=== PATIENT | female | born 1980 | race Caucasian/White ===

== ENCOUNTER 2018-09-23 12:31 | Emergency (ER) | payer MEDICAID, OTHER ==
[~2018-09-23] VITALS: Ht 160 cm; Wt 83.9 kg
[2018-09-23 13:47] LABS: Basophils # (auto) 0 uL; Basophils % (auto) 0.4 % (0.0-2.0); Eosinophils # (auto) 0.1 uL; Eosinophils % (auto) 1.4 % (0.0-7.0); Hematocrit 42.3 % (36.0-46.0); Hemoglobin 14.4 g/dL (12.2-16.2); Lymphocytes # (auto) 2.3 uL; Lymphocytes % (auto) 21.1 % (10.0-50.0); Mean Corpuscular Volume 88.2 fL (80.0-100.0); Monocytes # (auto) 0.7 uL; Monocytes % (auto) 6.7 % (0.0-12.0); Neutrophils # (auto) 7.6 uL; Neutrophils % (auto) 70.4 % (37.0-80.0); Platelet Count (auto) 359 10^3/uL (140-450); Red Cell Distribution Width 13.8 % (11.8-14.3); White Blood Cell 10.8 10^3/uL (4.4-10.8)
[2018-09-23 13:54] LABS: Urine Bacteria NONE SEEN /hpf (None Seen); Urine Blood Negative /uL (Negative); Urine Specific Gravity 1.027 (1.001-1.035); Urine WBC 15 /hpf (0 - 5)
[2018-09-23 13:59] LABS: Albumin 3.7 g/dL (3.4-5.0); Anion Gap 8 (5-15); BUN/Creatinine Ratio 17.1; Blood Urea Nitrogen 14 mg/dL (7-18); Calcium 8.7 mg/dL (8.5-10.1); Carbon Dioxide 25 mmol/L (21-32); Chloride 110 mmol/L (98-107); GFR African American 100 mL/min; GFR Non-African American 83 mL/min; Glucose 100 mg/dL (74-106); Potassium 4.1 mmol/L (3.5-5.1); Sodium 143 mmol/L (136-145)
[2018-09-23 14:10] LABS: Alanine Aminotransferase 45 U/L (13-56); Alkaline Phosphatase 85 U/L (45-117); Aspartate Aminotransferase 24 U/L (15-37); Bilirubin, Total 0.4 mg/dL (0.2-1.0); Total Protein 7.7 g/dL (6.4-8.2)
[2018-09-23 15:16] VITALS: BP 145/76
== END 2018-09-23 15:32 | disposition home or self-care (01) ==
LOC: ER 12:35
DX: K29.70 Gastritis, unspecified, without bleeding (principal); E78.5 Hyperlipidemia, unspecified; I10 Essential (primary) hypertension; J45.909 Unspecified asthma, uncomplicated; Z88.0 Allergy status to penicillin
CPT/HCPCS: 36415; 80053; 81001; 85025

== ENCOUNTER 2019-12-15 10:58 | Inpatient (IN) | payer MEDICAID ==
[~2019-12-15] VITALS: Ht 154.9 cm; Wt 87.0 kg
[2019-12-15] VITALS (24 sets, daily range): BP systolic 123–228; BP diastolic 72–118
[2019-12-15] MEDS ORDERED: amLODIPine BESYLATE 5 MG TAB PO ONE (11:15)
[2019-12-15 12:17] LABS: Urine WBC None Seen /hpf (0 - 5)
[2019-12-15 12:31] LABS: Anion Gap 5 (5-15); Blood Urea Nitrogen 15 mg/dL (7-18); Calcium 8.3 mg/dL (8.5-10.1); Carbon Dioxide 24 mmol/L (21-32); Chloride 109 mmol/L (98-107); Glucose 90 mg/dL (74-106); Magnesium 2.4 mg/dL (1.6-2.6); Potassium 3.7 mmol/L (3.5-5.1); Sodium 138 mmol/L (136-145)
[2019-12-15 12:35] LABS: Basophils # (auto) 0 10 ^3/uL (0-0.2); Basophils % (auto) 0.4 % (0.0-2.0); Eosinophils # (auto) 0.3 10 ^3/uL (0-0.8); Eosinophils % (auto) 2.5 % (0.0-7.0); Hemoglobin 13.9 g/dL (12.2-16.2); Lymphocytes # (auto) 2.1 10 ^3/uL (0.4-5.4); Mean Corpuscular Hemoglobin 29.3 pg (28.0-32.0); Mean Corpuscular Hgb Conc. 33.8 g/dL (32.0-36.0); Mean Corpuscular Volume 86.7 fL (80.0-100.0); Monocytes # (auto) 0.8 10 ^3/uL (0-1.3); Neutrophils # (auto) 6.9 10 ^3/uL (1.6-8.6); Neutrophils % (auto) 68.1 % (37.0-80.0); Platelet Count (auto) 386 10^3/uL (140-450); Red Blood Cells 4.73 10^6/uL (4.0-5.20); Red Cell Distribution Width 14.3 % (11.8-14.3); White Blood Cell 10.1 10^3/uL (4.4-10.8)
[2019-12-15 12:37] LABS: Alanine Aminotransferase 31 U/L (13-56); Alkaline Phosphatase 71 U/L (45-117); Aspartate Aminotransferase 19 U/L (15-37); BUN/Creatinine Ratio 21.7; Bilirubin, Total 0.2 mg/dL (0.2-1.0); GFR African American 122 mL/min; GFR Non-African American 101 mL/min; Total Protein 6.5 g/dL (6.4-8.2)
[2019-12-15 12:39] LABS: Urine Bacteria FEW /hpf (None Seen); Urine Blood 3+ /uL (Negative); Urine Mucus FEW (None Seen); Urine Specific Gravity 1.025 (1.001-1.035)
[2019-12-15] MEDS ORDERED: LABETALOL HCL 5 MG/ML 4ML SYRINGE IV ONE (14:00)
[2019-12-15] MEDS ORDERED: NITROGLYCERIN 0.4 MG SL TAB SL PRN (15:30)
[2019-12-15] MEDS ORDERED: MORPHINE SULF INJ 2 MG/ML SYRINGE 1ML IV PRN ×2 (15:30→16:00)
[2019-12-15] MEDS ORDERED: LOSARTAN POTASSIUM 50 MG TAB PO ONE (16:00)
[2019-12-15] MEDS ORDERED: ALBUTEROL SULF 2.5 MG/0.5ML(0.5%) NEB SOLN NEB PRN (16:00)
[2019-12-15] MEDS ORDERED: PROMETHAZINE HCL 25 MG/ML 1ML IV PRN (16:00)
[2019-12-15] MEDS ORDERED: ACETAMINOPHEN 500 MG TAB PO PRN (16:00)
[2019-12-15] MEDS ORDERED: LACTULOSE 20Gm/30ML SOLN PO PRN (16:00)
[2019-12-15 17:10] LABS: CRP High Sensitivity 0.31 mg/dL (< 0.3)
[2019-12-15] MEDS: traMADol HCL 50 MG TAB PO PRN (17:25)
--- NOTE | 2019-12-15 18:20 | NUR ---
Pt being admitted to ICU [facility] admitted to ICU via gurney on prop sawyer, and portable 02. Patient transfered to bed, connected to ICU monitoring and oxygen, and weighed by bedscale. Patient oriented to Ilda Dooley, primary RN, unit, room, bed, and unit policies regarding patient care and visiting hours. All questions and concerns addressed, patient verbalized understanding. NOTE: []
--- NOTE | 2019-12-15 18:45 | NUR ---
PT WITH EMESIS OF 25 ML CLEAR FLUID. MEDICATED WITH PHENERGAN IV PER MD ORDER. CAUTIONED PT NOT TO GET OOB WITHOUT ASSISTANCE MED MAY MAKE HER DROWSY. SHE EXPRESSED UNDERSTANDING. BED IN LOW POSITION AND CALL LIGHT WITHIN REACH.
--- NOTE | 2019-12-15 19:10 | NUR ---
REPORT REPORT GIVEN TO CATHERINE SCANLON RN.
[2019-12-15 19:17] LABS: Amphetamine Screen, Urine NEGATIVE (NEGATIVE); Barbiturate Scree,Urine NEGATIVE (NEGATIVE); Benzodiazephine Screen, Urine NEGATIVE (NEGATIVE); Cannabinoid Screen, Urine NEGATIVE (NEGATIVE); Cocaine Screen, Urine NEGATIVE (NEGATIVE); Opiate Scree,Urine NEGATIVE (NEGATIVE); Phencyclidine Screen, Urine NEGATIVE (NEGATIVE)
--- NOTE | 2019-12-15 20:25 | NUR ---
OPEN NOTES ASSUMED CARE OF PATIENT. REPORT RECEIVED FROM NOLBERTO CHAUDHARY. ISOLATED PENDING COVID SWAB TEST RESULT. PATIENT IS ALERT AND AWAKE, STILL HAS SOME NAUSEA AND JUST VOMITED ABOUT 10MLS OF CLEAR OUTPUT. VERBALIZES NAUSEA IS THERE BUT DECREASE. GAVE SOME CRACKERS BECAUSE SHE HAS NOT HAD DINNER YET. HR 90-106/MIN, BP 150-160 MMHG SYSTOLIC. ON CARDENE DRIP AT 5MG/HR - WILL TITRATE TO KEEP SYSTOLIC <140 MMHG ORDERED. IV AT RIGHT HAND PATENT AND INTACT, NO REDNESS SEEN. FULL ASSESSMENT DONE -REFER INTERVENTIONS. WILL CONTINUE TO MONITOR
[2019-12-15] MEDS ORDERED: LOSA25TA38 PO (20:27)
--- NOTE | 2019-12-15 21:26 | NUR ---
HOSPITALIST CALLED BACK INFORMED THAT PATIENT IS STILL NAUSEOUS EVEN AFTER IV PHENERGAN GIVEN AT 1845HRS, VOMITED AGAIN. PATIENT HAS ORAL MEDICATIONS FOR 10PM - ASKED IF CAN CHANGE TO IV FORM 1. IV ZOFRAN 4MG Q6HRS PRN FOR NAUSEA 2. CHANGE PEPCID TO IV 3. CONTINUE WITH COREG AND THE REST OF THE MEDICATIONS
[2019-12-15] MEDS ORDERED: ONDANSETRON HCL 4 MG/2 ML VIAL IV PRN (21:30)
--- NOTE | 2019-12-15 21:45 | NUR ---
MENSES ACCORDING TO PATIENT, SHE IS ON DAY 4 ON MENSES
--- NOTE | 2019-12-15 21:59 | NUR ---
PAIN PATIENT VERBALIZES HEADACHE PAIN SCORE 4/10 REFUSES TO TAKE TYLENOL AT THE MOMENT SHE WILL TAKE A REST FIRST WILL CONTINUE TO MONITOR
[2019-12-15] MEDS ORDERED: FAMOTIDINE 20 MG TAB PO SCH (22:00)
--- NOTE | 2019-12-15 22:45 | NUR ---
PATIENT IS NOT NAUSEATED ANYMORE ORAL MEDICATIONS GIVEN ADVISED PATIENT TO CALL IF SHE FEEL NAUSEATED AGAIN HEADACHE - SHE SAID IS GETTING BETTER
[2019-12-15] MEDS: FAMOTIDINE (10MG/ML) 2ML VL IV SCH (22:50)
[2019-12-15] MEDS: NITROFURANTOIN 100 mg CAP PO SCH (22:50)
[2019-12-15] MEDS: CARVEDILOL 3.125 MG TAB PO SCH (22:50)
[2019-12-16] VITALS (95 sets, daily range): BP systolic 118–188; BP diastolic 73–119
--- NOTE | 2019-12-16 00:15 | NUR ---
CARDENE WEANED OFF PATIENT'S SBP 120-130 MMHG LATEST BP 129/76 WEANED OFF CARDENE DRIP WILL CONTINUE TO MONITOR
--- NOTE | 2019-12-16 02:00 | NUR ---
PATIENT RESTING,EYES CLOSED,LOOKED COMFORTABLE VS STABLE CARDENE DRIP REMAINED OFF WILL CONTINUE TO MONITOR
--- NOTE | 2019-12-16 03:32 | NUR ---
OFF ISOLATION - COVID TEST CAME BACK NEGATIVE
--- NOTE | 2019-12-16 04:15 | NUR ---
CARDENE RE-STARTED FOR HIGH BP PATIENT'S SBP 160-167 MMHG - RE STARTED IV CARDENE AT 2.5 MG/HR WILL CONTINUE TO MONITOR, MAY NEED PRN ANTI HYPERTENSIVE MEDICATION
[2019-12-16 04:28] LABS: Cholesterol 248 mg/dL (< 200); HDL Cholesterol 54 mg/dL (40-59); LDL Cholesterol 164 mg/dL (< 100); Triglycerides 263 mg/dL (< 150)
--- NOTE | 2019-12-16 04:56 | NUR ---
PRN ANTI HYPERTENSIVE MEDICATIONS TALKED TO HOSPITALIST MARY INFORMED PATIENT NEEDED TO BE BACK ON IV CARDENE DRIP BECAUSE SBP >160 MMHG TELEPHONE ORDER RECEIVED AND READ BACK ORAL HYDRALAZINE 50MG Q4HR PRN FOR SBP >150 MMHG
[2019-12-16] MEDS: hydrALAZINE HCL 25 MG TAB PO PRN ×2 (06:01→15:14)
--- NOTE | 2019-12-16 06:10 | NUR ---
BP HIGH IV CARDENE DRIP AT 2.5MG/HR BP 163/104 MMHG ORAL HYDRALAZINE GIVEN
--- NOTE | 2019-12-16 06:15 | NUR ---
PATIENT ATE 1 JELLO NO NAUSEA OR VOMITING NOTED AFTERWARDS
--- NOTE | 2019-12-16 06:16 | NUR ---
12 LEAD EKG DONE ORDERED
--- NOTE | 2019-12-16 07:30 | NUR ---
REPORT REPORT RECEIVED FROM GHISLAINE RNCATHERINE. BEDSIDE CHECK DONE. PT RESTING WITH NO COMPLAINTS AT THIS TIME. CONTINUE TO MONITOR.
--- NOTE | 2019-12-16 07:40 | NUR ---
ASSESSMENT PT AWAKE AND A/O X4. ABLE TO MOVE SELF IN BED. LUNGS CLEAR THROUGHOUT. ROOM AIR SAT OF 97%. TELE SR 81 WITH INVERTED P AND T WAVES IN AVR, ELEVATED ST IN AVR, AVL, AND V, AND DEPRESSED ST IN LEADS II, III, AVF. PALPABLE PULSES TO ALL EXTREMITIES. NO EDEMA NOTED. ABD SOFT WITH BOWEL SOUNDS NOTED. DENIES ANY N/V AT THIS TIME. VOIDS VIA BSC, NONE AT THIS TIME. SKIN IS INTACT. CONTINUE TO MONITOR.
--- NOTE | 2019-12-16 09:30 | NUR ---
BP OF 177/111. INCREASED NICARDIPINE DRIP FROM 2.5 TO 5 MG/HR. CONTINUE TO MONITOR BP.
[2019-12-16] MEDS ORDERED: LOSARTAN POTASSIUM 50 MG TAB PO SCH (10:00)
--- NOTE | 2019-12-16 10:00 | NUR ---
PAIN PT WITH C/O HEADACHE PAIN, 06/23. MEDICATED WITH TRAMADOL PER MD ORDER. BP OF 164/89. GIVEN SCHEDULED MEDS INCLUDING LOSARTEN AND COREG. CONTINUE TO MONITOR BP.
[2019-12-16] MEDS: NITROFURANTOIN 100 mg CAP PO SCH (10:06)
[2019-12-16] MEDS: ASPirin 81 mg TAB PO SCH (10:06)
[2019-12-16] MEDS: CARVEDILOL 3.125 MG TAB PO SCH (10:06)
[2019-12-16] MEDS: FAMOTIDINE (10MG/ML) 2ML VL IV SCH (10:07)
[2019-12-16] MEDS: traMADol HCL 50 MG TAB PO PRN ×2 (10:17→15:53)
--- NOTE | 2019-12-16 10:58 | NUR ---
BP OF 148/87. DECREASED CARDENE TO 2.5 MG/HR. CONTINUE TO MONITOR BP.
--- NOTE | 2019-12-16 11:00 | NUR ---
PAIN PT DENIES ANY PAIN.
--- NOTE | 2019-12-16 11:35 | NUR ---
PT UP TO BSC AND VOIDED 300 ML CLEAR YELLOW URINE. ON NICARDIPINE AT 2.5 MG/HR WITH BP 165/97 AFTER GETTING OOB. DENIES ANY PAIN. CONTINUE TO MONITOR.
[2019-12-16] MEDS ORDERED: FUROSEMIDE 40 MG/4 ML VIAL IV ONE (12:00)
[2019-12-16] MEDS ORDERED: LOSARTAN POTASSIUM 50 MG TAB PO ONE (12:00)
--- NOTE | 2019-12-16 12:30 | NUR ---
will administer cozaar when received from pharmacy
[2019-12-16] MEDS ORDERED: LOSARTAN POTASSIUM 50 MG TAB ONE (12:49)
[2019-12-16 12:52] LABS: Potassium 3.9 mmol/L (3.5-5.1)
[2019-12-16 13:00] LABS: Albumin 3.1 g/dL (3.4-5.0); BUN/Creatinine Ratio 16.1; Bilirubin, Total 0.4 mg/dL (0.2-1.0); Calcium 8.3 mg/dL (8.5-10.1); Total Protein 6.3 g/dL (6.4-8.2)
--- NOTE | 2019-12-16 13:33 | NUR ---
PAIN PT WITH C/O HEADACHE PAIN , RATES 3-4. TOO EARLY FOR TRAMADOL AND PT DOES NOT WANT THE TYLENOL. I OFFERED TO CALL THE MD BUT SHE STATED "I'LL JUST DEAL WITH IT". LET HER KNOW TO TELL ME IF IT'S GETTING WORSE. SHE STATED UNDERSTANDING.
--- NOTE | 2019-12-16 13:51 | NUR ---
BP OF 129/79 AND TURNED OFF NICARDIPINE DRIP. CONTINUE TO MONITOR BP.
--- NOTE | 2019-12-16 15:15 | NUR ---
PT'S PAIN IS A 3/10 AND CAN WAIT UNTIL PAIN MED IS DUE. BP 159/92 . RESTARTED NICARDIPINE DRIP AT 2.5 MG/HR AND ALSO ADMINISTERED HYDRALAZINE 50 MG PO , A PRN DOSE.
--- NOTE | 2019-12-16 15:45 | NUR ---
PAIN PT WITH C/O HEADACHE PAIN 06/23. ADMINISTERED TRAMADOL 50 MG PO. ADVISED PT THAT IT MAY MAKE HER DROWSY AND TO CALL FOR ASSISTANCE IF GETTING UP. SHE EXPRESSED UNDERSTANDING.
--- NOTE | 2019-12-16 16:40 | NUR ---
BP OF 174/99 DESPITE HYDRALAZINE PRN PO DOSE AT 1515. INCREASED NICARDIPINE DRIP TO 5 MG/HR. PAGING DR LINDSEY TO SEE IF SHE WANTS ANY OTHER MEDS GIVEN. Addendum: 12/16/19 at 1648 by Ilda Dooley RN PAIN NOW 04/25
--- NOTE | 2019-12-16 16:55 | NUR ---
MD/PHONE PAGED AND SPOKE WITH DR LINDSEY REGARDING PT'S HTN 174/99 AND THAT I INCREASED THE NICARDIPINE DRIP TO 5 MG/HR. ORDER RECEIVED FOR CLONIDINE 0.1 MG PO 2 QHRS PRN SBP GREATER THAN 160 AND TITRATE THE NICARDIPINE DRIP TO MAINTAIN THE SBP 140-150.
[2019-12-16] MEDS ORDERED: cloNIDine HCL 0.1 MG TAB PO PRN (17:00)
--- NOTE | 2019-12-16 18:20 | NUR ---
SERVED PT DINNER. CURRENT BP OF 141/90 WITH NICARDIPINE AT 5 MG/HR. DENIES ANY PAIN. CONTINUE TO MONITOR.
--- NOTE | 2019-12-16 19:20 | NUR ---
OPENING NOTE REPORT RECEIVED FROM EULA ARVIZU. RECEIVED A/OX4 FEMALE PATIENT ON CONTINUOUS BEDSIDE MONITORS. PATIENT IS ON ROOM AIR, NO SOB OR DISTRESS NOTED. NICARDIPINE GTT INFUSING AT 5MG/HR. SWITCHED NICARDIPINE GTT OVER TO RIGHT HAND PER PHARMACY SUGGESTION TO SWITCH PERIPHERAL IV SITES TO DECREASE CHANCE OF VEIN IRRITATION. PATIENT BP IN 140'S AT THIS TIME. PATIENT ABLE TO TURN AND REPOSITION SELF IN BED WITHOUT DIFFICULTY. NO PAIN REPORTED. POC DISCUSSED AND ALL QUESTIONS ANSWERED. WILL MONITOR CLOSELY.
[2019-12-16] MEDS: METOPROLOL TARTRATE 25 MG TAB PO SCH (21:41)
[2019-12-16] MEDS: ATORVASTATIN 20 MG TAB PO SCH (21:41)
[2019-12-16] MEDS: PANTOPRAZOLE 40 MG TAB PO SCH (21:41)
[2019-12-17] VITALS (65 sets, daily range): BP systolic 107–177; BP diastolic 51–127
--- NOTE | 2019-12-17 | NUR ---
NICARDIPINE BP 126/81. BP HAS BEEN MAINTAINING IN 120'S. NICARDIPINE GTT DECREASED TO 2.5MH/HR PER PROTOCOL. WILL CONTINUE MONITORING.
--- NOTE | 2019-12-17 01:00 | NUR ---
NICARDIPINE GTT TURNED OFF AT THIS TIME. BP 120/67. WILL MONITOR CLOSELY.
[2019-12-17] MEDS: hydrALAZINE HCL 25 MG TAB PO PRN ×2 (03:42→17:14)
[2019-12-17 05:28] LABS: BUN/Creatinine Ratio 19.8; Calcium 8.1 mg/dL (8.5-10.1); Potassium 3.5 mmol/L (3.5-5.1)
--- NOTE | 2019-12-17 06:05 | NUR ---
AM CARES PATIENT PROVIDED WITH WASH CLOTHS AND CHG WIPES AND PATIENT WAS ABLE TO CLEAN SELF INDEPENDENTLY. NEW GOWN PROVIDED TO PATIENT. COMPLETE LINEN CHANGE PROVIDED.
--- NOTE | 2019-12-17 07:27 | NUR ---
CLOSING PATIENT RESTING COMFORTABLY IN BED. PATIENT HAS BEEN OFF NICARDIPINE GTT SINCE 0100 THIS AM. CURRENT BPS IN 120'S AND STABLE. NO SIGNS OF DISTRESS. CARE ENDORSED TO AM SHIFT NOLBERTO ABDUL.
--- NOTE | 2019-12-17 07:35 | NUR ---
ASSESS- PT. LYING IN BED AWAKE, ALERT AND ORIENTED TIMES FOUR. DENIES ANY PAIN OR DISCOMFORT. NO HEADACHE. LUNGS CLEAR [place]. INSPIRATORY AND EXPIRATORY. NO SOB. ON R/A. NO N/V. ABD. SOFT, FLAT, NON-TENDER. BOWEL SOUNDS ALL FOUR QUADRANTS. RADIAL PULSES STRONG, PALPABLE [place]OR[place]. DORSALIS PEDAL PULSES STRONG, PALPABLE [place]. 1 PLUS EDEMA ANKLES FLORINA. SKIN INTACT. PT. MOVES UPPER AND LOWER EXTREMITIES [place]OR[place]. WITHOUT DIFFICULTY. ABLE TO TURN SELF IN BED. VOIDING VIA BSC WITHOUT DIFFICULTY.
--- NOTE | 2019-12-17 09:15 | NUR ---
DR. MEJIA Provider/Hospitalist at bedside. GAVE UPDATE ON PT. NEW ORDERS RECEIVED.
--- NOTE | 2019-12-17 09:30 | NUR ---
SBP 160'S-170. WILL GIVE PT. SCHEDULED BP MEDS FOR THIS AM. MONITORING BP.
[2019-12-17] MEDS: ASPirin 81 mg TAB PO SCH (09:41)
[2019-12-17] MEDS: PANTOPRAZOLE 40 MG TAB PO SCH ×2 (09:42→21:41)
[2019-12-17] MEDS: LOSARTAN POTASSIUM 50 MG TAB PO SCH (09:42)
[2019-12-17] MEDS: METOPROLOL TARTRATE 25 MG TAB PO SCH ×2 (09:42→21:41)
[2019-12-17] MEDS: TRIAMTERENE/HCTZ 37.5/25 MG CAP/TAB PO SCH (09:43)
--- NOTE | 2019-12-17 10:30 | NUR ---
SBP DECREASED TO 139. CONTINUING TO MONITOR BP.
[2019-12-17] MEDS: SUCRALFATE 1 GM/10 ML ORAL SUSP PO SCH ×3 (11:31→21:41)
--- NOTE | 2019-12-17 11:42 | NUR ---
Nutrition Assessment Notes Please refer to link for full assessment notes. Est Energy needs: [id number] kcals (14-18 kcal/kgBW) Est Protein needs: 66-82 gms/day (0.8-1.0 gm/kgBW) Will continue to monitor and reassess prn. Addendum: 12/17/19 at [address] Amended: Links added.
--- NOTE | 2019-12-17 13:30 | NUR ---
PT. RESTING WITH EYES CLOSED. NO SIGNS OF DISTRESS OR DISCOMFORT.
--- NOTE | 2019-12-17 15:55 | NUR ---
IV removal IV DC'd with sterile technique, catheter fully intact. Pressure dressing applied to site. Patient tolerated procedure well. IV RT. HAND BURNING WHEN FLUSHED WITH NS.
--- NOTE | 2019-12-17 17:14 | NUR ---
BP 169/100. MED. PT. WITH HYDRALAZINE 50 MG. PO.
--- NOTE | 2019-12-17 18:15 | NUR ---
LAST BP 163/100. MONITORING BP.
--- NOTE | 2019-12-17 19:31 | NUR ---
Opening shift note received report from day shift NOLBERTO Guzman. Pt is AAOx4 denies any pain at this time. Pt came in due to high blood pressure, was on nicardipine drip which was turned off during air motor repairer last night. Pt's B/P is currently 118/75. Pt is lying in bed watching tv, respirations are even and unlabored. No s/s of distress noted at this time. Pt has no complaints at this time. Will continue to monitor. Addendum: 12/17/19 at 2202 by MARIA ELENA BECK RN RN Bed is locked at lowest position, side rails are up. Call light within reach. Pt instructed to call if she needs anything.
[2019-12-17] MEDS: ATORVASTATIN 20 MG TAB PO SCH (21:41)
--- NOTE | 2019-12-17 22:55 | NUR ---
Report given to Missy All questions and concerns addressed.
--- NOTE | 2019-12-17 23:10 | NUR ---
pt got to floor from ICU. report received from NOLBERTO Geiger
[2019-12-18] MEDS: hydrALAZINE HCL 25 MG TAB PO PRN ×3 (00:17→23:53)
[2019-12-18 04:42] VITALS: BP 146/84
[2019-12-18] MEDS: SUCRALFATE 1 GM/10 ML ORAL SUSP PO SCH ×4 (06:09→21:45)
--- NOTE | 2019-12-18 07:30 | NUR ---
Opening Shift Note RECEIVED REPORT FROM NOC RN. Assumed care of patient, awake and alert. No S/S of distress/SOB or pain. BED IN LOWEST, LOCKED POSITION WITH SIDERAILS UP x2 AND CALL LIGHT WITHIN REACH. Instructed on POC and to call for assist PRN, will continue to monitor for changes Q1hr and PRN.
--- NOTE | 2019-12-18 07:30 | NUR ---
endorsed care to day RN, no sign of distress/ pain at this time
[2019-12-18 07:57] LABS: Basophils # (auto) 0.1 10 ^3/uL (0-0.2); Basophils % (auto) 0.5 % (0.0-2.0); Eosinophils # (auto) 0.3 10 ^3/uL (0-0.8); Eosinophils % (auto) 2.9 % (0.0-7.0); Hematocrit 42.4 % (36.0-46.0); Hemoglobin 14.1 g/dL (12.2-16.2); Lymphocytes # (auto) 1.5 10 ^3/uL (0.4-5.4); Mean Corpuscular Hemoglobin 29.3 pg (28.0-32.0); Mean Corpuscular Hgb Conc. 33.2 g/dL (32.0-36.0); Mean Corpuscular Volume 88.3 fL (80.0-100.0); Monocytes % (auto) 9.1 % (0.0-12.0); Neutrophils # (auto) 7.9 10 ^3/uL (1.6-8.6); Neutrophils % (auto) 73.5 % (37.0-80.0); Platelet Count (auto) 373 10^3/uL (140-450); Red Cell Distribution Width 14.5 % (11.8-14.3); White Blood Cell 10.7 10^3/uL (4.4-10.8)
[2019-12-18 08:14] LABS: Potassium 3.9 mmol/L (3.5-5.1)
[2019-12-18 08:25] LABS: Albumin 3.1 g/dL (3.4-5.0); BUN/Creatinine Ratio 22.7; Bilirubin, Total 0.5 mg/dL (0.2-1.0); Calcium 8.8 mg/dL (8.5-10.1); Total Protein 6.7 g/dL (6.4-8.2)
[2019-12-18 09:00] VITALS: BP 131/73
[2019-12-18] MEDS: LOSARTAN POTASSIUM 50 MG TAB PO SCH (10:24)
[2019-12-18] MEDS: ASPirin 81 mg TAB PO SCH (10:24)
[2019-12-18] MEDS: PANTOPRAZOLE 40 MG TAB PO SCH ×2 (10:25→21:45)
[2019-12-18] MEDS: METOPROLOL TARTRATE 25 MG TAB PO SCH ×2 (10:25→21:46)
[2019-12-18] MEDS: TRIAMTERENE/HCTZ 37.5/25 MG CAP/TAB PO SCH (10:25)
[2019-12-18 14:25] VITALS: BP 179/60
--- NOTE | 2019-12-18 15:05 | NUR ---
DR. Jevon WINTER AT BEDSIDE.
[2019-12-18 18:00] VITALS: BP 155/100
--- NOTE | 2019-12-18 19:30 | NUR ---
Opening Shift Note Assumed care of patient, awake and alert. No S/S of distress/SOB or pain. Instructed on POC and to call for assist PRN, will continue to monitor for changes Q1hr and PRN.
[2019-12-18] MEDS: ATORVASTATIN 20 MG TAB PO SCH (21:45)
[2019-12-18 22:00] VITALS: BP 161/104
[2019-12-19 05:00] VITALS: BP 122/83
[2019-12-19] MEDS: SUCRALFATE 1 GM/10 ML ORAL SUSP PO SCH ×2 (06:12→11:30)
[2019-12-19 06:13] LABS: Basophils # (auto) 0.1 10 ^3/uL (0-0.2); Basophils % (auto) 0.5 % (0.0-2.0); Eosinophils # (auto) 0.3 10 ^3/uL (0-0.8); Eosinophils % (auto) 2.7 % (0.0-7.0); Hematocrit 43.7 % (36.0-46.0); Hemoglobin 14.6 g/dL (12.2-16.2); Lymphocytes # (auto) 1.5 10 ^3/uL (0.4-5.4); Lymphocytes % (auto) 14.7 % (10.0-50.0); Mean Corpuscular Hemoglobin 29.3 pg (28.0-32.0); Mean Corpuscular Hgb Conc. 33.5 g/dL (32.0-36.0); Mean Corpuscular Volume 87.5 fL (80.0-100.0); Monocytes % (auto) 9.3 % (0.0-12.0); Neutrophils # (auto) 7.6 10 ^3/uL (1.6-8.6); Neutrophils % (auto) 72.8 % (37.0-80.0); Nucleated Red Blood Cells % 0.2 %; Platelet Count (auto) 368 10^3/uL (140-450); Red Cell Distribution Width 14.4 % (11.8-14.3); White Blood Cell 10.5 10^3/uL (4.4-10.8)
[2019-12-19 06:43] LABS: BUN/Creatinine Ratio 26.2; Calcium 8.7 mg/dL (8.5-10.1); Potassium 3.7 mmol/L (3.5-5.1)
--- NOTE | 2019-12-19 07:36 | NUR ---
endorsed care to day RN, no sign of distress/pain at this time
--- NOTE | 2019-12-19 08:00 | NUR ---
Received pt resting in bed, call light with in reach, no pain or distress noted or reported at this time, will continue to monitor pt.
[2019-12-19] MEDS: ASPirin 81 mg TAB PO SCH (10:08)
[2019-12-19] MEDS: LOSARTAN POTASSIUM 50 MG TAB PO SCH (10:09)
[2019-12-19] MEDS: PANTOPRAZOLE 40 MG TAB PO SCH (10:09)
[2019-12-19] MEDS: METOPROLOL TARTRATE 25 MG TAB PO SCH (10:09)
[2019-12-19] MEDS ORDERED: ATOR10TA52 PO (11:11)
[2019-12-19] MEDS ORDERED: ASPI81CH43 PO (11:11)
[2019-12-19] MEDS ORDERED: HYDR50TA15 PO (11:11)
[2019-12-19] MEDS ORDERED: LOSA-69 PO (11:11)
[2019-12-19] MEDS ORDERED: PANT40T PO (11:11)
[2019-12-19] MEDS ORDERED: MET25T PO (11:11)
[2019-12-19] MEDS ORDERED: PNEUMOCOCCAL VACC POLYS 25 MCG/0.5 ML VIAL IM ONE (12:30)
[2019-12-19 12:38] VITALS: BP 144/80
--- NOTE | 2019-12-19 13:49 | NUR ---
Discharge instructions given as ordered. Encourage to follow up with PMD as instructed. All questions and concerns addressed. Patient verbalized understanding. Medication reconciliation form completed and copy given to patient. No home medications held in Pharmacy, and needed vaccines given. IV removed with catheter intact, pressure dressing applied. Telemetry unit returned to ICU.
[2019-12-19] MEDS ORDERED: hydrALAZINE HCL 25 MG TAB PO SCH (14:00)
--- NOTE | 2019-12-19 14:22 | NUR ---
Patient walked out of [facility], accompanied by staff member. No distress noted at time of departure.
== END 2019-12-19 14:20 | disposition home or self-care (01) | DRG 199 ==
LOC: ER 10:58 → TELE 10:59 → ICU WEST 17:49 → TELE-WESTW 12-17 22:59
PROVIDERS: ADMIT Internal Medicine; ATTEND Internal Medicine
DX: I16.0 Hypertensive urgency (principal); E44.1 Mild protein-calorie malnutrition; F41.9 Anxiety disorder, unspecified; R51.9 Headache, unspecified; R11.2 Nausea with vomiting, unspecified; N80.9 Endometriosis, unspecified; J45.909 Unspecified asthma, uncomplicated; F32.9 Major depressive disorder, single episode, unspecified; E78.5 Hyperlipidemia, unspecified; E66.01 Morbid (severe) obesity due to excess calories; K21.9 Gastro-esophageal reflux disease without esophagitis; K29.70 Gastritis, unspecified, without bleeding; K27.9 Peptic ulcer, site unspecified, unspecified as acute or chronic, without hemorrhage or perforation; Z68.36 Body mass index [BMI] 36.0-36.9, adult; Z71.3 Dietary counseling and surveillance; Z79.899 Other long term (current) drug therapy; Z79.891 Long term (current) use of opiate analgesic; Z79.01 Long term (current) use of anticoagulants; Z20.828 Contact with and (suspected) exposure to other viral communicable diseases; N18.9 Chronic kidney disease, unspecified; I50.9 Heart failure, unspecified; R31.9 Hematuria, unspecified; I13.0 Hypertensive heart and chronic kidney disease with heart failure and stage 1 through stage 4 chronic kidney disease, or unspecified chronic kidney disease; Z82.49 Family history of ischemic heart disease and other diseases of the circulatory system; R16.0 Hepatomegaly, not elsewhere classified; N39.0 Urinary tract infection, site not specified; Z88.1 Allergy status to other antibiotic agents
CPT/HCPCS: 36415; 70450; 71045; 74176; 76700; 76775; 80048; 80053; 80061; 80307; 81001; 81025; 82150; 82550; 83690; 83735; 83880; 84443; 84484; 85025; 85379; 85652; 86141; 87081; 87426; 93005; 93306; 96374; 99291; G0378; J2405; J3490

== ENCOUNTER 2021-06-19 13:08 | Emergency (ER) | payer MEDICAID ==
[~2021-06-19] VITALS: Ht 160 cm; Wt 81.6 kg
[~2021-06-19 13:08] MED LIST: ASPI81CH43 PO; ATOR10TA52 PO; HYDR50TA15 PO; LOSA-69 PO; MET25T PO; PANT40T PO
[2021-06-19 18:14] LABS: Basophils # (auto) 0 10 ^3/uL (0-0.2); Basophils % (auto) 0.3 % (0.0-2.0); Eosinophils # (auto) 0.1 10 ^3/uL (0-0.8); Eosinophils % (auto) 0.8 % (0.0-7.0); Hematocrit 41.1 % (36.0-46.0); Lymphocytes # (auto) 1.8 10 ^3/uL (0.4-5.4); Lymphocytes % (auto) 18.8 % (10.0-50.0); Mean Corpuscular Hemoglobin 29.4 pg (28.0-32.0); Mean Corpuscular Hgb Conc. 34.2 g/dL (32.0-36.0); Mean Corpuscular Volume 86.1 fL (80.0-100.0); Monocytes # (auto) 0.7 10 ^3/uL (0-1.3); Monocytes % (auto) 7.5 % (0.0-12.0); Neutrophils # (auto) 7.1 10 ^3/uL (1.6-8.6); Neutrophils % (auto) 72.6 % (37.0-80.0); Nucleated Red Blood Cells % 0.2 %; Red Blood Cells 4.78 10^6/uL (4.0-5.20); White Blood Cell 9.8 10^3/uL (4.4-10.8)
[2021-06-19 18:23] LABS: Urine Bacteria NONE SEEN /hpf (None Seen); Urine Blood 3+ /uL (Negative); Urine Budding Yeast FEW /hpf (None Seen); Urine Mucus FEW (None Seen); Urine WBC 12 /hpf (0 - 5)
[2021-06-19 18:29] LABS: Calcium 9.7 mg/dL (8.5-10.1); Potassium 4.1 mmol/L (3.5-5.1)
[2021-06-19 18:32] LABS: BUN/Creatinine Ratio 21.7
[2021-06-19 18:39] LABS: Bilirubin, Total 0.2 mg/dL (0.2-1.0); Total Protein 8.3 g/dL (6.4-8.2)
[2021-06-19 19:07] LABS: Alcohol, Urine < 3.0 mg/dL (0-10); Amphetamine Screen, Urine NEGATIVE (NEGATIVE); Barbiturate Scree,Urine NEGATIVE (NEGATIVE); Benzodiazephine Screen, Urine NEGATIVE (NEGATIVE); Cannabinoid Screen, Urine NEGATIVE (NEGATIVE); Cocaine Screen, Urine NEGATIVE (NEGATIVE); Opiate Scree,Urine NEGATIVE (NEGATIVE)
[2021-06-19 20:04] LABS: Phencyclidine Screen, Urine NEGATIVE (NEGATIVE)
[2021-06-19] MEDS ORDERED: LABETALOL HCL 5 MG/ML 4ML SYRINGE IV ONE (20:45)
[2021-06-19 21:42] VITALS: BP 238/130
== END 2021-06-19 22:04 | disposition left against medical advice (07) ==
LOC: ER 13:08
DX: Z04.6 Encounter for general psychiatric examination, requested by authority (principal); I10 Essential (primary) hypertension; R94.31 Abnormal electrocardiogram [ECG] [EKG]; J45.909 Unspecified asthma, uncomplicated; E78.5 Hyperlipidemia, unspecified; Z20.822 Contact with and (suspected) exposure to COVID-19
CPT/HCPCS: 36415; 80053; 80307; 81001; 81025; 84443; 85025; 87426; 93005; 96374; 99284; J3490